=== PATIENT | female | born 1990 | race American Indian/Alaskan Native ===

== ENCOUNTER 2017-03-05 11:23 | Outpatient (CLI) | payer SELFPAY ==
[2017-03-05] MEDS ORDERED: LACTATED RINGERS 1,000 ML IV ONE (11:27)
[2017-03-05 11:34] VITALS: BP 100/56
[2017-03-05 11:51] LABS: Urine Drugs of Abuse Note Disclamer
[2017-03-05 12:04] LABS: Bacteria,Urine 2+ /HPF (Negative); Bilirubin,Urine NEG (Negative); Blood,Urine NEG (Negative); Ketones,Urine 20 mg/dL (Negative); Leukocyte Esterase,Urine TR (Negative); Mucus,Urine 2+ /HPF; Nitrite,Urine NEG (Negative); Protein,Urine <15 mg/dL mg/dL (Negative)
== END 2017-03-05 14:00 | disposition home or self-care (01) ==
LOC: TRG 11:23 → LD 11:23 → TRG 14:00
PROVIDERS: ATTEND Obstetrics & Gynecology
DX: Z34.92 Encounter for supervision of normal pregnancy, unspecified, second trimester (principal); Z3A.32 32 weeks gestation of pregnancy
CPT/HCPCS: 59025; 80307; 81001